=== PATIENT | male | born 1980 | race Caucasian/White ===

== ENCOUNTER 2020-04-15 12:10 | Emergency (ER) | payer BC, SELFPAY ==
[2020-04-15 12:11] VITALS: BP 151/94; PULSE 111; RESP 16; TEMP 35.9; O2SAT 93; BMI 39.8
--- NOTE | 2020-04-15 12:39 | ED.VISSUMM ---
- ER Visit Summary Date of Service: 04/15/20 Chief Complaint: Slipped and fell in the mud with a laceration to left ring finger History of Present Illness: The patient is a 39 M [id number]. Was outside today slipped and fell in the mud and somehow lacerated the tip of his left ring finger. He denies any other injuries. He did not hit his head. No LOC. This occurred within the last 1 to 2 hours. Tetanus is not up-to-date. Physical Examination: Middle-aged male no acute distress vital signs stable afebrile. HEENT exam unremarkable atraumatic. No facial or scalp trauma. Neck nontender. Lungs clear to auscultation bilaterally. Heart regular rhythm no murmur. Abdomen soft nontender. Chest wall nontender. Girdle intact. Moving all 4 extremities. Neurovascularly intact. Left ring finger has a laceration on the side of the nail involving the skin and subcu tissue is a flap. It is on the ulnar side. He has full flexion-extension all digits of the left hand. Normal touch sensation. There is mild oozing of blood no pulsatile bleeding. No gross bony deformity. No bony tenderness. Neurologically is awake alert with no focal motor deficits. Test Results: None Emergency Department Course and Treatment: Left ring finger laceration repair. Procedure note: Left ring finger flap laceration along the border of the nail on the ulnar side. Approximately 3 cm in length. Digital block was performed once proper anesthetic was obtained a cleaned the wound thoroughly with Shur-Clens then irrigated the wound and explored. There is no involvement of ligament, tendon, joint or bone seen. There is no foreign body seen. It was closed using 4 oh simple interrupted suture. Proper hemostasis and wound closure is obtained patient tolerated procedure well. Dressing and bacitracin ointment will be applied by nursing. Treatment Plan: Wound care. Suture removal in 10 to 14 days. Watch for any signs of infection. Ice and elevate. Change dressing daily. Tylenol and Motrin for pain. Disposition: Discharge Impression: Acute left ring finger laceration of 3 cm with ER repair Tetanus updated This note was generated with [employer] dictation software. It may contain incorrect words, spelling, and punctuation that were not noted in review of the chart prior to signing
[2020-04-15] MEDS: Diphth,Pertuss(Acell),Tet Vac 0.5 ML Vial IM (12:44)
[2020-04-15] MEDS: Lidocaine 1% (20 ml mdv) 20 ML Vial 10 ML INFILT (12:45)
--- NOTE | 2020-04-15 13:46 | DCINST.ED_ITS ---
ED Disposition - Plan for ED Patient: Disposition: Home or Assisted Living Instructions: ED Laceration, Hand: All Closures Referrals: Lucien Hurt NP, DATABASE ENGINEER-C [Primary Care Provider] - 10-14 Days suture removal Additional Instructions: Watch for any signs of infection such as redness, fever, pus, streaks or worsening swelling or pain. Is seen return to the emergency department. Ice and elevate to decrease pain and swelling along with Tylenol and Motrin. Suture removal in 10 to 14 days. Clean daily with soap and water or peroxide and water. Dry thoroughly. Apply antibiotic ointment daily. Call or return if any problems.
== END 2020-04-15 14:15 | disposition home or self-care (01) ==
PROVIDERS: Emergency Provider Emergency Medicine; PCP Nurse Practitioner Primary Care
DX: S61.215A Laceration without foreign body of left ring finger without damage to nail, initial encounter (principal); Z23 Encounter for immunization; I10 Essential (primary) hypertension; Z79.899 Other long term (current) drug therapy; W45.8XXA Other foreign body or object entering through skin, initial encounter; Y93.89 Activity, other specified; Y92.89 Other specified places as the place of occurrence of the external cause; Y99.8 Other external cause status
CPT/HCPCS: 12002; 90471; 90715; 99284

== ENCOUNTER 2020-04-19 10:50 | Emergency (ER) | payer BC, SELFPAY ==
[2020-04-19 10:51] VITALS: BP 147/89; PULSE 68; RESP 18; TEMP 36.3; O2SAT 100; BMI 41.1
[2020-04-19 10:53] VITALS: BP 147/89; PULSE 68; RESP 18; TEMP 36.3; O2SAT 100
--- NOTE | 2020-04-19 11:22 | ED.DCSUM_ITS ---
History of Present Illness Chief Complaint: Wound Check Informant: Patient Narrative: 39-year-old male presents with concern for left fourth digit infection. Patient received 6 sutures here in this emergency department 5 days ago after lacerating his finger after falling in the yard at home. Patient states that over the past day he has had increased drainage and foul smell. Followed up with the urgent care who advised being seen in the emergency department for IV antibiotics. Denies any fever or chills. Past Medical History - Allergies and Home Meds Allergies/Adverse Reactions: Allergies nicotine Adverse Reaction (Verified 04/19/20 10:51) Shortness of breath flouride Allergy (Uncoded 04/19/20 10:51) Vomiting Primary Care Physician: Lucien Hurt NP, DIRECTOR OF ONLINE MERCHANDISING-C [Primary Care Provider] - Prior records reviewed: Yes Past Medical History: - - HTN Surgical History: no surgical history Lives: Spouse/ Significant Other Smoking Status: Never smoker Alcohol: None Drugs: None Review of Systems General: Denies: Chills, Fever, Sweats Eyes: Denies: Visual changes - bilaterally, Diplopia ENT: Denies: Rhinorrhea, Sore throat Cardiovascular: Denies: Chest pain, Palpitations Respiratory: Denies: Dyspnea, Cough, Dyspnea on exertion Gastrointestinal: Denies: Abdominal pain, Nausea, Vomiting, Diarrhea, Melena, Hematochezia Genitourinary: Denies: Dysuria, Hematuria, Frequency Musculoskeletal: Denies: Back pain, Extremity Pain Skin: Reports: Wounds. Denies: Rash Neurological: Denies: Headache, Weakness, Numbness Physical Exam Vital Signs/Narrative: Vital Signs Temp Pulse Resp BP Pulse Ox 04/19/20 10:53 97.4 F L 68 18 147/89 H 100 04/19/20 10:51 97.4 F L 68 18 147/89 H 100 Inital Vital Signs reviewed: Yes General: Well nourished, Well developed, No Acute Distress Head: Normocephalic, Atraumatic Eyes: Perrl, EOMI ENT: Moist mucous membranes, No rhinorrhea Neck: Supple, Nontender Cardiovascular: Regular rate, Regular rhythm, No murmurs Respiratory: No distress, CTA bilaterally, Chest nontender Abdomen: Soft, Nontender, Nondistended, Normal bowel sounds Back: Nontender, Normal Inspection Extremities: Nontender, No edema Skin: Normal color, No rash, - - Sutured crescent shaped wound to the left fourth digit. Drainage and erythema. Neurological: Alert, Oriented x3, Cranial nerves II-XII grossly intact, Normal Strength, Normal Sensation Psychological: Normal affect, Normal Mood Diagnostic/Tx/Re-eval - Medical Decision Making Patient appears well and nontoxic. Vital signs within normal limits. Patient has good capillary refill of this finger. 3 of the 6 sutures were removed to allow for drainage. Patient was given a single dose of IV clindamycin and will be discharged on p.o. clindamycin for the next 10 days. Asked to follow-up with his primary care provider within the next 2 days for wound recheck. Asked to return for any new or worsening symptoms. Patient agreeable and discharged home in stable condition. Impression: 1. Felon 2. Suture removal ED Disposition - Plan for ED Patient: Disposition: Home or Assisted Living Instructions: ED Staph Skin Infection, Possible MRSA Prescriptions: Clindamycin [Cleocin] 450 mg PO TID #90 cap Prescription Printed Referrals: Lucien Hurt NP, DIRECTOR OF ONLINE MERCHANDISING-C [Primary Care Provider] - 2 Days
== END 2020-04-19 12:34 | disposition home or self-care (01) ==
PROVIDERS: Emergency Provider Emergency Medicine; PCP Nurse Practitioner Primary Care
DX: L03.012 Cellulitis of left finger (principal); I10 Essential (primary) hypertension; Z48.02 Encounter for removal of sutures; Z79.899 Other long term (current) drug therapy
CPT/HCPCS: 96365; 99283; J7030; A4216

== ENCOUNTER 2020-08-11 16:06 | Outpatient (RCR) | payer BC, SELFPAY | END 2020-09-15 23:59 | LOC: IMMUN 16:06 | PROVIDERS: PCP Nurse Practitioner Primary Care; Visit Provider Family Medicine | DX: Z23 Encounter for immunization (principal) | CPT/HCPCS: 0001A; 0002A; 91300 ==

== ENCOUNTER 2022-09-14 02:12 | Emergency (ER) | payer BC, SELFPAY ==
[2022-09-14 02:13] VITALS: BP 142/95; PULSE 69; RESP 16; TEMP 36.4; O2SAT 98; BMI 39.0
--- NOTE | 2022-09-14 02:30 | EDS_ITS ---
HPI HPI - URI History of Present Illness Chief Complaint: Sore Throat Informant: patient Onset/Context/Timing Onset: Today Context: Gradual Onset Timing: Continuous Quality: Aching, pulling Location: Throat Worsened by: Swallowing Relieved by: - (Drinking water) Associated Symptoms Associated Symptoms: Positive for Nasal Congestion and Chest Pain; Negative for Headache, Sinus Pressure, Myalgias, Nausea, Vomiting, Diarrhea, Shortness of Breath, Nonproductive cough, Hemoptysis or Productive Cough Narrative Narrative: Patient presents with a sore throat that began today. Patient states it was getting progressively worse while he was at work. Patient states it is gradually getting worse. Patient describes it as aching and pulling sensation in his throat. Patient denies any fevers or chills. Patient does admit to a mild cough. Patient states it was getting better with drinking water but now it is constant. Patient admits to some nasal congestion. Patient also admits to some pain going from his throat down to his chest and into his epigastric area. Patient denies any nausea or vomiting. Patient denies any runny shortness of breath. ROS ROS ED Constitutional Constitutional ED: Denies chills or fever(s) Eyes Eyes: Denies blurry vision or change in vision ENT ENT ED: Reports sore throat; Denies rhinorrhea Cardiovascular Cardiovascular: Reports chest pain; Denies palpitations Respiratory/Chest Respiratory/Chest: Denies cough or dyspnea Gastrointestinal Gastrointestinal: Reports abdominal pain; Denies nausea or vomiting Genitourinary Genitourinary ED: Denies dysuria or hematuria Musculoskeletal Musculoskeletal: Reports back pain; Denies neck pain Integumentary Denies abscess or rash Neurologic Neurologic: Denies headache(s) or weakness Allergic/Immunologic Allergic/Immunologic ED: Denies mouth swelling or urticaria [facility] Medical History (Updated 09/14/22 @ 03:[address] Manuel Mera DO) Arthritis Status post repair of fracture of orbit Allergy/AdvReac Type Severity Reaction Status Date / Time fluoride AdvReac Vomiting Verified 01/03/22 16:20 nicotine AdvReac Shortness Verified 04/19/20 10:51 of breath Social History Smoking Status: Never smoker EXAM Physical Exam Const Vital Signs: 09/14/22 02:13 09/14/22 02:19 Temperature 97.5 F L Temperature Source Oral Pulse Rate 69 Respiratory Rate 16 Respiratory Effort Normal Non-Labored Blood Pressure 142/95 H Blood Pressure Mean 110 Pulse Ox 98 Oxygen Delivery Method Room Air Positive well nourished and well developed General Appearance ED: well developed and NAD HEENT Reports moist mucous membranes Throat: posterior oropharynx abnormal Positive for erythema; Negative for edema or exudates Neck supple, no meningeal signs and no JVD General: Negative for anterior neck swelling Resp normal respiratory effort and clear to auscultation bilaterally Cardio regular rate, regular rhythm and no murmurs GI normal to inspection, nondistended, normoactive bowel sounds and non-tender Palpation: soft Extremity normal to inspection General Extremety ED: Negative for edema or tenderness General Extremity: Negative for edema Neuro oriented x3, CN's II-XII intact bilaterally and no sensory deficits noted Sensorium / Orientation: alert Motor Exam: strength 5/5 throughout Psych mental status grossly normal MDM MDM MDM Narrative Medical decision making narrative: Differential diagnosis includes strep pharyngitis, viral pharyngitis, and viral upper respiratory infection. Rapid strep will be obtained to assess for strep pharyngitis. COVID-19 rapid antigen will be obtained to assess for COVID-19 infection. Influenza A and influenza B antigens will be obtained to assess for influenza infection. Lab Data Lab results narrative: Rapid strep was reviewed and was negative. COVID-19 rapid antigen was reviewed and was negative. Influenza A and influenza B antigens were reviewed and were negative. Treatment and Re-Evaluation Narrative: Patient was advised of the findings. Patient was advised that this is likely a viral pharyngitis. Patient was instructed drink plenty of fluids. Patient was instructed to take Tylenol or ibuprofen as needed for any pain or fever. Patient was instructed return if worse in any way. Patient was instructed to follow-up with his primary care physician in 5 to 7 days. Patient understood and was agreeable with plan. All questions were answered. Discharge Plan Triage Chief Complaint: Sore Throat ED Provider: Manuel Mera Dx/Rx/DC Orders Clinical Impression: Viral pharyngitis Instructions: ED Pharyngitis, Viral Primary Care Provider: Care Physician,No Primary Referrals: Lucien Hurt CLOTH WINDER MACHINE OPERATOR, CLOTH WINDER MACHINE OPERATOR-C [Non-Staff] - 5-7 Days Disposition Disposition: Home, Self Care
== END 2022-09-14 03:54 | disposition home or self-care (01) ==
PROVIDERS: Emergency Provider Emergency Medicine; Visit Provider Emergency Medicine
DX: J02.8 Acute pharyngitis due to other specified organisms (principal); R07.9 Chest pain, unspecified; R10.13 Epigastric pain
CPT/HCPCS: 87428; 87880; 99283